=== PATIENT | female | born 1965 | race Caucasian/White ===

== ENCOUNTER 2020-12-20 08:43 | Outpatient (REF) | payer OTHER, SELFPAY ==
[2020-12-21 12:33] LABS: BV Int Neg Control Negative (Negative); BV Int Pos Control Positive (Positive)
== END 2020-12-20 08:44 | disposition home or self-care (01) ==
LOC: HO.LAB 08:43
PROVIDERS: PCP Internal Medicine; Visit Provider Advanced Practice Midwife
DX: Z01.419 Encounter for gynecological examination (general) (routine) without abnormal findings (principal); N89.8 Other specified noninflammatory disorders of vagina; N84.1 Polyp of cervix uteri; N95.0 Postmenopausal bleeding; R32 Unspecified urinary incontinence; R23.2 Flushing
CPT/HCPCS: 87480; 87510; 87660

== ENCOUNTER 2020-12-26 13:37 | Outpatient (REF) | payer OTHER, SELFPAY ==
--- NOTE | ~2020-12-26 | US_ITS ---
EXAMINATION: US PELVIS, COMPLETE CLINICAL INFORMATION: Postmenopausal bleeding. COMPARISON: None TECHNIQUE: Transabdominal and transvaginal imaging were performed. FINDINGS: The uterus is of normal size and echogenicity measuring 8.7 x 3.0 x 4.9 cm. The uterus is anteverted. A regular homogeneous endometrium is identified measuring 0.6 cm. Both ovaries are of normal size and echogenicity. The right ovary measures 1.5 x 1.5 x 0.8 cm for a volume of 0.9 mL. The left ovary measures 1.8 x 1.5 x 0.9 cm for a volume of 1.3 mL. There is no pelvic free fluid. No adnexal mass is seen. US/US pelvic and transvaginal IMPRESSION: Unremarkable pelvic ultrasound.
== END 2020-12-26 13:38 | disposition home or self-care (01) ==
LOC: HO.US 13:37
PROVIDERS: Visit Provider Advanced Practice Midwife
DX: N95.0 Postmenopausal bleeding (principal); N84.1 Polyp of cervix uteri
CPT/HCPCS: 76830; 76856

== ENCOUNTER 2021-01-17 13:11 | Outpatient (REF) | payer OTHER, SELFPAY ==
[2021-01-18 12:46] LABS: BV Int Neg Control Negative (Negative)
[2021-01-18 12:47] LABS: BV Int Pos Control Positive (Positive)
[2021-01-21 17:22] LABS: HPV mRNA E6/E7 rflx Not Detected (Not Detected)
== END 2021-01-17 13:12 | disposition home or self-care (01) ==
LOC: HO.LAB 13:11
PROVIDERS: PCP Internal Medicine; Visit Provider Advanced Practice Midwife
DX: N84.1 Polyp of cervix uteri (principal); N95.0 Postmenopausal bleeding; N89.8 Other specified noninflammatory disorders of vagina; Z71.2 Person consulting for explanation of examination or test findings
CPT/HCPCS: 57500; 58100; 58558; 87480; 87510; 87624; 87660; 88142; 88305

== ENCOUNTER → 2021-01-23 11:20 | Outpatient (BNVA) | payer OTHER, SELFPAY | PROVIDERS: PCP Internal Medicine; Visit Provider Advanced Practice Midwife ==

== ENCOUNTER → 2021-03-18 10:43 | Outpatient (BNVA) | payer OTHER, SELFPAY | PROVIDERS: PCP Internal Medicine | DX: N39.41 Urge incontinence (principal) | CPT/HCPCS: 51798 ==

== ENCOUNTER 2021-06-20 11:00 | Outpatient (RCR) | payer OTHER, SELFPAY ==
--- NOTE | 2021-05-08 15:22 | MHC.PT.EP ---
[facility] [place] [facility] [place] [facility] [place] [facility] [address] Alpesh Maynard [address] [phone] F: [phone] F: [phone] F: [phone] F: [phone] Physical Therapy Plan of Care Date of Evaluation: Date of Surgery: Diagnosis: Assessment: The patient arrived reporting symptoms of mixed incontinence (stress and urge) An internal assessment of Pelvic floor muscles reveals significant weakness but most notable poor endurance of her pelvic floor muscles. Poor coordination and quick contractions also noted. No pain noted with palpation, and normal pelvic tone. I will explore dyspareunia in subsequent visits as well as abdominal wall surgies to see if there is any relation. The patient will benefit from education and behavioral training to help control her urges to urinate. The patient will also benefit from pelvic floor strengthening to improve her control of her external sphincter. She is an excellent candidate for skilled Pelvic floor therapy. I will also discuss and rule out diabetes management to help decrease urinary frequency if her DM is not controlled. Frequency and Duration: The patient will be seen 1x/week x 8 weeks. Short Term Goals: 1. Pt to be able to correctly activate her PFM to allow improved support to bowel and bladder. 2. Pt to be able to demonstrate a pre contraction before a cough 3. Pt to be educated on bladder irritants in order to decrease UI triggers 4. Pt to complete a voiding log in order to accurately assess her bladder habits 5. Pt to be educated on behavior training to help decrease urge incontinence. Grade Teacher Goals: 1. Pt to be able to show improved PFM contraction during functional movements such as a bridge or squat to help prevent or limit POP. 2. Pt to reduce # of episodes of MAVERICK during the day by 50% to help improve quality of life and reduce pad usage. 3. Pt to be independent with her final HEP for PFM in order to help maintain gains made in therapy. Treatment Plan: Modalities to reduce pain, spasms and effusion. Manual therapy to restore motion and function. Therapeutic exercise to improve strength and flexibility. Neuromuscular re-education for posture and balance. Therapeutic activities to return to functional activities of daily living. Electronically signed by: Jessica Schaefer PT DPT Please sign and return to therapist. Thank you for your referral.
== END 2021-09-30 14:19 | disposition home or self-care (01) ==
LOC: HO.PT 11:00
PROVIDERS: PCP Internal Medicine; Visit Provider Urology
DX: N39.41 Urge incontinence (principal)
CPT/HCPCS: 97110; 97112; 97140; 97162; 97530